=== PATIENT | male | born 1945 | race Caucasian/White ===

== ENCOUNTER 2018-06-24 01:29 | Emergency (ER) | payer OTHER ==
[~2018-06-24] VITALS: Ht 162.6 cm; Wt 76.8 kg
[2018-06-24 01:33] VITALS: Ht 162.6 cm; Wt 76.8 kg
[2018-06-24 02:31] VITALS: BP 110/67
[2018-06-24 02:48] LABS: UA SPECIFIC GRAVITY <=1.005 (1.005-1.035); microscopic required? YES; urine erythrocyte 2+ (NEGATIVE)
== END 2018-06-24 02:31 | disposition home or self-care (01) ==
LOC: ED 01:29
PROVIDERS: Emergency Medicine
DX: R33.9 Retention of urine, unspecified (principal); R10.30 Lower abdominal pain, unspecified